=== PATIENT | female | born 1995 | race Caucasian/White ===

== ENCOUNTER 2020-11-03 09:41 | Observation (INO) ==
[2020-11-03 11:13] LABS: Basophils % 0.7 %; Eosinophils # 0.1 K/mcL (0.0-0.6); Eosinophils % 1.3 %; Hematocrit 41.2 % (35.3-44.9); Hemoglobin 13.3 g/dL (11.5-15.4); Immature Granulocytes % 0.2 % (0-4); Lymphocytes # 1.9 K/mcL (0.6-4.6); Lymphocytes % 30.9 %; Mean Corpuscular HGB Conc 32.3 g/dL (31.6-35.5); Mean Corpuscular Hemoglobin 32.4 pg (28.0-33.3); Mean Corpuscular Volume 100.2 fL (83.0-100.0); Mean Platelet Volume 10.6 fL (9.4-12.4); Monocytes # 0.5 K/mcL (0.0-1.3); Monocytes % 7.8 %; Neutrophils # 3.6 K/mcL (1.6-8.9); Platelet Count 311 K/mcL (140-400); Red Blood Count 4.11 M/mcL (3.82-4.97); Red Cell Distribution Width 12.1 % (11.5-14.5); Segmented Neutrophils % 59.1 %; White Blood Count 6.1 K/mcL (4.3-11.1)
[2020-11-03 11:30] LABS: Bilirubin,Urine Negative (Negative); Blood,Urine Negative (Negative); Clarity,Urine Clear (Clear); Color,Urine Light-Yellow (Yellow); Glucose,Urine (UA) Normal (Normal); Ketones,Urine Negative (Negative); Leukocyte Esterase,Urine Negative (Negative); Nitrite,Urine Negative (Negative); Protein,Urine Trace mg/dL (Neg-Trace); Urobilinogen,Urine Normal (Normal)
[2020-11-03 11:31] LABS: Prothrombin Time 11.8 Seconds (9.4-12.1)
[2020-11-03 11:34] LABS: Activated Partial Thrombo Time 30.7 Seconds (26.0-36.0)
[2020-11-03 11:35] LABS: Alanine Aminotransferase 16 Units/L (7-52); Albumin 4.3 g/dL (3.5-5.7); Albumin/Globulin Ratio 1.4 (1.1-2.2); Alkaline Phosphatase 52 Units/L (34-104); Aspartate Amino Transferase 13 Units/L (13-39); BUN/Creatinine Ratio 20 (6-26); Bilirubin,Total 0.4 mg/dL (0.3-1.0); Blood Urea Nitrogen 16 mg/dL (6-20); Calcium 9.1 mg/dL (8.6-10.3); Carbon Dioxide 24 mEq/L (23-29); Chloride 106 mEq/L (98-107); Globulin 3.1 g/dL (2.4-3.5); Glucose 87 mg/dL (70-105); Osmolality,Calculated 287 (280-300); Sodium 138 mEq/L (136-145); Total Protein 7.4 g/dL (6.4-8.9); eGFR For African Americans > 60 (> 60); eGFR For Non-African Americans > 60 (> 60)
[2020-11-03 11:36] LABS: Troponin I < 0.03 ng/mL (< 0.04)
[2020-11-03] MEDS ORDERED: 0.9 % Sodium Chloride 1,000 ML IVC ONE (12:17)
[2020-11-03] MEDS ORDERED: Metoclopramide 10 MG/2 ML VIAL IVP ONE ×2 (12:17→22:12)
[2020-11-03] MEDS ORDERED: Perflutren Lipid Microsphere 1.3 ML in 0.9 % Sodium Chloride 8.7 ML IVP PRN (12:53)
[2020-11-03 12:54] LABS: Amphetamine Screen,Urine Negative ng/mL (Cutoff=1000); Barbiturate Screen,Urine Negative ng/mL (Cutoff=200); Benzodiazepines Screen,Urine Negative ng/mL (Cutoff=200); Cannabinoid Screen,Urine Negative ng/mL (Cutoff = 50); Cocaine Screen,Urine Negative ng/mL (Cutoff= 300); Opiate Screen,Urine Negative ng/mL (Cutoff=300); Phencyclidine Screen,Urine Negative ng/mL (Cutoff=25)
[2020-11-03] MEDS ORDERED: Naloxone 0.4 MG/ML INJ IVP PRN (13:00)
[2020-11-03] MEDS ORDERED: Isovue-370 500 ML BOTTLE IVP ONE (13:18)
[2020-11-03 13:32] LABS: Magnesium 1.9 mg/dL (1.6-2.6)
[2020-11-03] MEDS: Aspirin Enteric Coated 81 MG Tablet PO SCH (14:10)
[2020-11-03] MEDS: Acetaminophen 325 MG TABLET PO PRN (20:09)
[2020-11-03] MEDS: Ondansetron 4 MG/2 ML VIAL IVP PRN (20:10)
[2020-11-03] MEDS ORDERED: SUMAtriptan succinate 25 MG TABLET PO ONE (22:13)
[2020-11-03] MEDS ORDERED: MethylPREDNISolone 40 MG/ML VIAL IVP ONE (22:32)
[2020-11-04 01:34] LABS: Hematocrit 40.3 % (35.3-44.9); Hemoglobin 13.1 g/dL (11.5-15.4); Mean Corpuscular HGB Conc 32.5 g/dL (31.6-35.5); Mean Corpuscular Volume 98.5 fL (83.0-100.0); Mean Platelet Volume 10.5 fL (9.4-12.4); Platelet Count 310 K/mcL (140-400); Red Blood Count 4.09 M/mcL (3.82-4.97); Red Cell Distribution Width 12.2 % (11.5-14.5); White Blood Count 6.9 K/mcL (4.3-11.1)
[2020-11-04 01:51] LABS: BUN/Creatinine Ratio 21 (6-26); Blood Urea Nitrogen 18 mg/dL (6-20); Calcium 9.1 mg/dL (8.6-10.3); Carbon Dioxide 26 mEq/L (23-29); Chloride 105 mEq/L (98-107); Chol/HDL Ratio 3.6 (0-4.9); Cholesterol 167 mg/dL (< 200); Glucose 106 mg/dL (70-105); HDL Cholesterol 47 mg/dL (40-59); LDL Cholesterol,Calculated 105 mg/dL (< 100); Osmolality,Calculated 288 (280-300); Potassium 4.5 mEq/L (3.5-5.1); Sodium 138 mEq/L (136-145); Triglycerides 75 mg/dL (< 150); eGFR For African Americans > 60 (> 60); eGFR For Non-African Americans > 60 (> 60)
[2020-11-04 04:06] LABS: Estimated Average Glucose 108 mg/dl; Hemoglobin A1C 5.4 %
[2020-11-04] MEDS: Aspirin Enteric Coated 81 MG Tablet PO SCH (10:18)
[2020-11-04] MEDS ORDERED: Metoclopramide 10 MG/2 ML VIAL IVP ONE (10:41)
[2020-11-04 14:26] LABS: Red Blood Cell,CSF < 2000 RBC/mcL
[2020-11-04 14:31] LABS: Glucose,CSF 87 mg/dL (40-70); Total Protein,CSF 22 mg/dL (15-45)
[2020-11-04 14:48] LABS: Appearance,CSF Clear (Clear)
[2020-11-04] MEDS ORDERED: *HR* LORazepam 1 MG TABLET PO PRN (18:40)
[2020-11-04] MEDS: Topiramate 25 MG CAP.SPRINK PO SCH (21:00)
[2020-11-04] MEDS: Acetaminophen 325 MG TABLET PO PRN (21:05)
[2020-11-05 02:31] LABS: Hematocrit 35.9 % (35.3-44.9); Hemoglobin 11.7 g/dL (11.5-15.4); Mean Corpuscular HGB Conc 32.6 g/dL (31.6-35.5); Mean Corpuscular Hemoglobin 32.8 pg (28.0-33.3); Mean Corpuscular Volume 100.6 fL (83.0-100.0); Platelet Count 323 K/mcL (140-400); Red Blood Count 3.57 M/mcL (3.82-4.97); Red Cell Distribution Width 12.3 % (11.5-14.5); White Blood Count 9.3 K/mcL (4.3-11.1)
[2020-11-05 02:56] LABS: BUN/Creatinine Ratio 23 (6-26); Blood Urea Nitrogen 18 mg/dL (6-20); Carbon Dioxide 24 mEq/L (23-29); Chloride 104 mEq/L (98-107); Glucose 93 mg/dL (70-105); Osmolality,Calculated 286 (280-300); Potassium 4.4 mEq/L (3.5-5.1); Sodium 137 mEq/L (136-145); eGFR For African Americans > 60 (> 60); eGFR For Non-African Americans > 60 (> 60)
[2020-11-05 06:55] VITALS: BP 105/64
[2020-11-05] MEDS: Ondansetron 4 MG/2 ML VIAL IVP PRN (09:40)
[2020-11-05] MEDS: Aspirin Enteric Coated 81 MG Tablet PO SCH (09:41)
[2020-11-05] MEDS: Topiramate 25 MG CAP.SPRINK PO SCH (09:41)
== END 2020-11-05 13:17 | disposition home or self-care (01) ==
LOC: EMEROOARM 09:41 → 3NENU 09:41 → SUATTDRO 12:31 → 3NENU 13:06
PROVIDERS: ADMIT Internal Medicine; ATTEND Family Medicine